=== PATIENT | female | born 1960 | race Caucasian/White ===

== ENCOUNTER 2018-04-04 12:02 | Day surgery (SDC) | payer BC ==
--- NOTE | 2018-03-09 07:50 | HP ---
PREOPERATIVE HISTORY AND PHYSICAL: DATE OF SURGERY/ADMISSION: 04/04/18 DATE OF OFFICE VISIT: 03/08/18 ATTENDING SURGEON: Dr. Sandra Watkins.* (DICTATED BY ROS HILTON) PROCEDURE: Left shoulder arthroscopic decompression, debridement and removal of loose body, possible rotator cuff repair, possible subpectoral biceps tenodesis. CHIEF COMPLAINT: Left shoulder pain. HISTORY OF PRESENT ILLNESS: Kendra is a 57-year-old female who presented to the clinic for left shoulder pain due to a loose body and possible rotator cuff tear as well as biceps tendonitis. She has failed conservative measures and, therefore, agreed to undergo a left shoulder arthroscopic decompression, debridement, removal of loose body, possible rotator cuff repair, and possible subpectoral biceps tenodesis with Dr. Watkins on 04/04/18. PAST MEDICAL HISTORY: Phlebitis of the leg. PAST SURGICAL HISTORY: x2 and left hand surgery. She denies prior complications with the anesthesia. MEDICATIONS: Multivitamin 1 by mouth daily. ALLERGIES: No known drug allergies. FAMILY HISTORY: Positive for heart disease and hypertension. SOCIAL HISTORY: She lives alone. She is a stoneworker. She denies tobacco use. She denies alcohol consumption. She is right hand dominant. REVIEW OF SYSTEMS: A 14-point review of systems was reviewed with the patient. Positive for current complaint, otherwise negative. Denies history of DVT or PE , history of bleeding disorders, fever, chills, chest pain or shortness of breath. PHYSICAL EXAMINATION GENERAL: A 57-year-old well-developed, well-nourished female. VITAL SIGNS: Height 70, weight 195. Blood pressure 118/70, respiratory rate 18. BMI 28.0. HEENT: Normocephalic, atraumatic. PERRL. Throat clear. NECK: Supple. PULMONARY: Lungs are clear to auscultation bilaterally. No wheezing, rhonchi, or rales. CARDIOVASCULAR: Regular rate and rhythm. S1 and S2. No murmurs, gallops, or rubs. No edema. ABDOMEN: Positive bowel sounds. Soft, nontender. NEUROLOGIC: Alert and oriented x3. Cranial nerves grossly intact. Sensation intact to light touch. MUSCULOSKELETAL: Left upper extremity, skin is intact. No warmth or erythema. Forward flexion 150, abduction 120, external rotation to 45, internal rotation to lateral hip. Pain with rotator cuff testing. Positive impingement with Speed, Mccall-Clarence, Larue. +2 radial pulses. Sensation intact to light touch distally. DIAGNOSTIC STUDIES/LAB DATA: MRI revealed glenohumeral joint osteoarthritis with loose body in the joint. The rotator cuff appears intact. IMPRESSION: Left shoulder osteoarthritis with loose body, possible rotator cuff tear, biceps tendonitis. PLAN: The patient is scheduled to undergo a left shoulder arthroscopic decompression, debridement, removal of loose body, possible rotator cuff repair , possible subpectoral biceps tenodesis with Dr. Watkins on 04/04/18. She will follow up 10 to 14 days postop for followup and suture removal. [place] will be used for postop pain management because the patient had Percocet in the past and it was ineffective. ROS HILTON [id number]/[facility] #: [id number] JOSE L
[~2018-04-04 12:02] MED LIST: Buffered Lidocaine 0.9% SYRIN* 5 ML/SYR SYRINGE INTRADERM ONE; Famotidine IV* 10 MG/ML 2 ML (20 mg) IV ONE; Lactated Ringers 1000 ML Bag* 1,000 ML IV SCH; Midazolam* 1 MG/ML 5 ML VIAL (5 MG) ONE; fentaNYL* 50 MCG/ML 2 ML VIAL (100 MCG VIAL) ONE
[2018-04-04] MEDS ORDERED: ceFAZolin 2 GM PREMIX in ORs 2 GM/50 ML BAG IVPB ONE (12:37)
[2018-04-04] MEDS ORDERED: Famotidine IV* 10 MG/ML 2 ML (20 mg) ONE ×2 (12:37→12:46)
[2018-04-04] MEDS ORDERED: ROPIVACAINE 5 MG/ML 30 ML BTL (0.5%) ONE (13:20)
[2018-04-04] MEDS ORDERED: Lidocaine 1%* 5 ML VIAL ONE (13:20)
[2018-04-04] MEDS ORDERED: Ropivacaine* 2 MG/ML 20 ML VIAL (0.2%) ONE (13:42)
[2018-04-04] MEDS ORDERED: KETAMINE HCL* 50 MG/ML 10 ML VIAL ONE (14:33)
[2018-04-04] MEDS ORDERED: Propofol* 10 MG/ML 20 ML BTL ONE (14:38)
[2018-04-04] MEDS ORDERED: Dexamethasone IV* 4 MG/ML 1 ML (4 MG) ONE (14:38)
[2018-04-04] MEDS ORDERED: Ondansetron INJ* 2 MG/ML VIAL ONE (14:38)
[2018-04-04] MEDS ORDERED: Ketorolac INJ* 30 MG/ML 1 ML VIAL ONE (14:38)
[2018-04-04] MEDS ORDERED: HYDROmorphone INJ1* 1 MG/ML SYRINGE IV PRN (15:36)
[2018-04-04] MEDS ORDERED: Naloxone* 0.4 MG/ML 1 ML VIAL IV PRN (15:36)
[2018-04-04] MEDS ORDERED: DiMENhydriNATE IV* 50 MG/ML VIAL IV PUSH PRN (15:36)
[2018-04-04] MEDS ORDERED: Acetaminophen TAB* 325 MG PO PRN (15:36)
[2018-04-04] MEDS ORDERED: oxyCODONE TAB* 5 MG TAB PO PRN (15:36)
[2018-04-04 19:09] VITALS: BP 134/83
--- NOTE | 2018-04-06 02:50 | OP ---
OPERATIVE REPORT: DATE OF OPERATION: 04/04/18 - [facility] DATE OF : 56 SURGEON: Dr. Sandra Watkins. AIRFRAME TECHNICIAN: ROS Pickens. ANESTHESIOLOGIST: Dr. Mari. ANESTHESIA: General interscalene block. PRE-OP DIAGNOSES: Left shoulder partial-thickness tear of the rotator cuff, left shoulder glenohumeral arthritis as well as loose bodies and bicipital tendinosis and tendonitis. POST-OP DIAGNOSIS: Left shoulder partial-thickness tear of the rotator cuff, left shoulder glenohumeral arthritis as well as loose bodies and bicipital tendinosis and tendonitis. OPERATIVE PROCEDURE: Left shoulder arthroscopy with: 1. Removal of loose bodies times 3 greater than 5 mm. 2. Extensive glenohumeral debridement including chondroplasty. 3. Decompression with acromioplasty. 4. Rotator cuff repair using Regeneten patch. 5. Open biceps tenodesis. IMPLANTS USED: One 2.8 mm Q-Fix, one Regeneten patch medium size. COMPLICATIONS: None. ESTIMATED BLOOD LOSS: Minimal. INDICATIONS: Kendra Cabral is a 57-year-old female with persistent shoulder pain. She has failed conservative management. She does have some known arthritis, but has more rotator cuff pain. She also has loose bodies as found on an MRI. The risks and benefits were discussed with the patient including, but not limited to bleeding, infection, damage to nerves; vessels; surrounding structures, wound nonhealing, persistent pain, need for further surgery, scarring, stiffness, incomplete relief of symptoms, and risks of anesthesia. DESCRIPTION OF PROCEDURE: The patient was greeted in the preoperative area by the attending surgeon. Correct extremity was marked and consent was confirmed. The patient underwent interscalene nerve block by anesthesiologist, after which she was brought back to the operating suite. She was placed in the supine position on the operating table. She underwent general anesthesia endotracheal intubation, after which she was placed in the right lateral decubitus position. All bony prominences were padded. The left shoulder was then draped unsterile with 10 pounds of traction. The left shoulder was then prepped and draped in the usual sterile fashion beginning with chlorhexidine soap, scrub, and alcohol wipe. After appropriate surgical pause indicating side, site, procedure, and administration of antibiotics, the posterolateral portal was made sharply with an 11-blade. The scope was introduced through the joint. The joint was examined. There was abundant synovitis and in the joint, there were obvious small loose bodies and chondral flaps. The anterior portal was made in an outside-in fashion. The patient had grade 3 and 4 changes with unstable flaps in the glenohumeral joint. The anterior, posterior, superior labrum had fraying of the superior labrum with torn biceps with tendonitis as well as superior labrum tearing. A shaver was used to do a small chondroplasty of the glenohumeral joint. There were obvious 3 large loose bodies more inferiorly. The inferior recess was intact. The loose bodies were then carefully removed. These were all greater than 5 mm. Once these were removed, the biceps was then tenotomized for later tenodesis and then the rotator cuff was examined. The undersurface had partial-thickness tearing. At this point, all fluid and debris was removed from this portion of the case and attention was directed to the subacromial space. With the scope in the subacromial space, the lateral portal was made in an outside- in fashion. Shaver was used to debride back the abundant bursa. She had a very significant overarching acromial spur. This was then debrided back fairly aggressively using a 4-0 oval shane. The CA ligament was peeled back as well. This allowed for more movement of the cuff. Cuff was then probed on the bursal side and was found to have some softening, but no obvious tears or tension. Thus, the decision was made to proceed with a Regeneten patch because of the patient's symptoms and the partial-thickness tear. Regeneten patch was then placed and we had some difficulty because of the enlarged acromion, but the tendon ines were then passed through separate cannulas. Once the patch was secured medially, the bone ines were then used laterally to secure them. Final images were obtained. The graft appeared to be stable. Attention was then directed to the biceps. The bed was air planed to the left side. The anterior aspect of the shoulder was prepped using ChloraPrep. A 15-blade was used to make an incision in line with the biceps. The soft tissues were carefully dissected to expose the pec. Once this was identified, the remainder of the dissection was done bluntly. The bicipital groove was palpated and the biceps was brought through the groove and then prepared in the usual fashion with electrocautery device, red ball rasp , and osteotome to allow for bony bleeding bed. The Q-Fix guide was then placed and drilled unicortically. The Q-Fix suture was placed with excellent purchase. The sutures were then passed through the tendon approximately 1 cm proximal to the musculotendinous junction in a Abhilash-Luis Alfredo type configuration. Excess stump was excised. The biceps was then shuttled back to the wound and secured. The wounds were then copiously irrigated with sterile saline. The anterior wound was closed in layers with 2-0 Vicryl and 3-0 Monocryl. The portals were closed with 3-0 nylon. Sterile dressings were applied. A Cryo/ Cuff and UltraSling were applied. She was awoken from anesthesia and transferred to the PACU in stable condition. POSTOPERATIVE PLAN: She will be nonweightbearing. She will start physical therapy in about 8 to 10 days. She will be discharged on pain medications and antibiotics. DVT prophylaxis was considered, but deferred due to no previous personal or family history. [id number]/[facility] #: [id number] JOSE L
== END 2018-04-04 19:12 | disposition home or self-care (01) ==
LOC: OR 12:02
PROVIDERS: ATTEND Orthopaedic Surgery
DX: M75.112 Incomplete rotator cuff tear or rupture of left shoulder, not specified as traumatic (principal); M19.012 Primary osteoarthritis, left shoulder; M75.22 Bicipital tendinitis, left shoulder; M24.012 Loose body in left shoulder; G89.18 Other acute postprocedural pain
CPT/HCPCS: C1713; C1776; J0690; J1100; J1885; J2250; J2405; J2704; J2795; J3010